=== PATIENT | female | born 1995 | race American Indian/Alaskan Native ===

== ENCOUNTER 2018-04-22 14:42 | Emergency (ER) | payer SELFPAY ==
[2018-04-22 15:36] VITALS: BP 133/73
[2018-04-22] MEDS ORDERED: NACL 0.9% 1000 ML 1,000 ML IV ONE (18:31)
== END 2018-04-22 21:07 | disposition left against medical advice (07) ==
LOC: ED 14:42
DX: R10.9 Unspecified abdominal pain (principal); Z53.21 Procedure and treatment not carried out due to patient leaving prior to being seen by health care provider